=== PATIENT | female | born 1970 | race American Indian/Alaskan Native ===

== ENCOUNTER 2019-12-07 14:57 | Emergency (ER) | payer OTHER ==
--- NOTE | 2019-12-07 16:57 | Event Note ---
ED Screening Note ED Screening Note: 49 yo female with hx of uterine fibroids s/y myomectomy presents with LLQ pain for one week. This initial assessment/diagnostic orders/clinical plan/treatment(s) is/are subject to change based on patients health status, clinical progression and re- assessment by fellow clinical providers in the ED. Further treatment and workup at subsequent clinical providers discretion. Patient/guardian urged not to elope from the ED as their condition may be serious if not clinically assessed and managed. Initial orders include: labs
[2019-12-07 17:00] VITALS: BP 102/74
[2019-12-07 19:44] LABS: Basophils % (Auto) 0.7 % (0.0-1.8); Eosinophils # (Auto) 0.1 K/mm3 (0.0-0.4); Eosinophils % (Auto) 1.7 % (0.0-4.3); Hemoglobin 12.6 gm/dl (10.1-14.3); Lymphocytes # (Auto) 1.6 K/mm3 (1.2-5.4); Lymphocytes % (Auto) 37.1 % (13.4-35.0); Mean Corpuscular HGB Conc 33 % (30-34); Mean Corpuscular Volume 88 fl (79-97); Monocytes # (Auto) 0.3 K/mm3 (0.0-0.8); Monocytes % (Auto) 7.6 % (0.0-7.3); Platelet Count 332 K/mm3 (140-440); Red Blood Count 4.34 M/mm3 (3.65-5.03); Red Cell Distribution Width 13.8 % (13.2-15.2)
[2019-12-07 20:04] LABS: BUN/Creatinine Ratio 13; Blood Urea Nitrogen 8 mg/dL (7-17); Hemolysis Index 5
[2019-12-07 20:11] LABS: HCG Qualitative,Urine Negative (Negative)
[2019-12-07 20:14] LABS: Amorphous Crystals,Urine 2+; Mucus,Urine FEW /HPF
[2019-12-07 20:22] LABS: Color,Urine Straw (Yellow)
[2019-12-07 20:23] LABS: Bilirubin,Urine Negative (Negative); Blood,Urine Moderate (Negative); Urobilinogen,Urine < 2.0 mg/dL (<2.0)
--- NOTE | 2019-12-07 21:21 | Emergency Department Report ---
HPI - General Chief Complaint: Abdominal Pain Time Seen by Provider: 12/07/19 21:10 - HPI HPI: Room 44 The patient is a 49-year-old female present with a chief complaint of abdominal pain. The patient states for 1 week she has had pain in left lower quadrant has been intermittent. Patient denies nausea vomiting or diarrhea. Patient is unable to describe the quality of her pain. Patient denies new rash formation. Patient denies fever, dysuria or hematuria. The patient currently gives her pain score 5/10 Location: [See above] Duration: [See above] Quality: [See above] Severity: [See above] Timing: [See above] Context: [See above] Modifying factors: [See above] Associated signs and symptoms: [see above] Mode of transportation: The patient drove herself to the emergency department and there are no visitors present ED Past Medical Hx - Past Medical History Previous Medical History?: No - Surgical History Past Surgical History?: Yes Additional Surgical History: Myomectomy 2010 - Social History Smoking Status: Never Smoker Substance Use Type: None (Denies illicit drug use) - Medications Home Medications: Home Medications Medication Instructions Recorded Confirmed Last Taken Type Ibuprofen [Motrin 800 MG tab] 800 mg PO Q8HR PRN #20 tablet 12/07/19 Unknown Rx traMADoL [Ultram] 50 mg PO Q6HR PRN #20 tablet 12/07/19 Unknown Rx ED Review of Systems ROS: Stated complaint: STOMACH PAIN Other details as noted in HPI Constitutional: denies: fever Eyes: denies: eye pain ENT: denies: throat pain Respiratory: no symptoms reported Cardiovascular: denies: chest pain Endocrine: no symptoms reported Gastrointestinal: abdominal pain. denies: nausea, vomiting, diarrhea Genitourinary: denies: dysuria, hematuria Musculoskeletal: denies: back pain Neurological: denies: headache Physical Exam - Physical Exam Vital Signs: Vital Signs 12/07/19 16:56 Temperature 98.5 F Pulse Rate 83 Respiratory 20 Rate Blood Pressure 102/74 O2 Sat by Pulse 99 Oximetry Physical Exam: GENERAL: The patient is well-developed well-nourished female sitting in chair not appearing to be in acute distress. [] HEENT: Normocephalic. Atraumatic. Extraocular motions are intact. Patient has moist mucous membranes. NECK: Supple. Trachea midline CHEST/LUNGS: Clear to auscultation. There is no respiratory distress noted. HEART/CARDIOVASCULAR: Regular. There is no tachycardia. There is no gallop rub or murmur. ABDOMEN: Abdomen is soft, with the discomfort to palpation in the midepigastric, suprapubic and left lower quadrant. Patient has normal bowel sounds. There is no abdominal distention. SKIN: There is no rash. There is no edema. There is no diaphoresis. NEURO: The patient is awake, alert, and oriented. The patient is cooperative. The patient has normal speech and gait. MUSCULOSKELETAL: There is no evidence of acute injury. ED Course Vital Signs 12/07/19 16:56 Temperature 98.5 F Pulse Rate 83 Respiratory 20 Rate Blood Pressure 102/74 O2 Sat by Pulse 99 Oximetry ED Medical Decision Making - Lab Data Result diagrams: 12/07/19 18:49 12/07/19 18:49 Laboratory Tests 12/07/19 12/07/19 12/07/19 18:49 18:49 18:49 WBC 4.3 L RBC 4.34 Hgb 12.6 Hct 38.0 MCV 88 MCH 29 MCHC 33 RDW 13.8 Plt Count 332 Lymph % (Auto) 37.1 H [place] % (Auto) 7.6 H Eos % (Auto) 1.7 Baso % (Auto) 0.7 Lymph # 1.6 Bradford # 0.3 Eos # 0.1 Baso # 0.0 Seg Neutrophils % 52.9 Seg Neutrophils # 2.2 Sodium 138 Potassium 4.2 Chloride 104.7 Carbon Dioxide 22 Anion Gap 16 BUN 8 Creatinine 0.6 L Estimated GFR > 60 BUN/Creatinine Ratio 13 Glucose 89 Calcium 9.0 Lipase 33 Urine Color Urine Turbidity Urine pH Ur Specific [place] Urine Protein Urine Glucose (UA) Urine Ketones Urine Blood Urine Nitrite Ur Reducing Substances Urine Bilirubin Urine Ictotest Urine Urobilinogen Ur Leukocyte Esterase Urine WBC (Auto) Urine RBC (Auto) U Epithel Cells (Auto) Amorphous Crystals Urine Mucus Urine HCG, Qual 12/07/19 19:41 WBC RBC Hgb Hct MCV MCH MCHC RDW Plt Count Lymph % (Auto) [place] % (Auto) Eos % (Auto) Baso % (Auto) Lymph # Bradford # Eos # Baso # Seg Neutrophils % Seg Neutrophils # Sodium Potassium Chloride Carbon Dioxide Anion Gap BUN Creatinine Estimated GFR BUN/Creatinine Ratio Glucose Calcium Lipase Urine Color Straw Urine Turbidity Cloudy Urine pH 8.0 H Ur Specific [place] 1.005 Urine Protein 30 mg/dl Urine Glucose (UA) Negative Urine Ketones Negative Urine Blood Moderate A Urine Nitrite Negative Ur Reducing Substances Not Reportable Urine Bilirubin Negative Urine Ictotest Not Reportable Urine Urobilinogen < 2.0 Ur Leukocyte Esterase Negative Urine WBC (Auto) 1.0 Urine RBC (Auto) 91.0 U Epithel Cells (Auto) < 1.0 Amorphous Crystals 2+ Urine Mucus Few Urine HCG, Qual Negative - Radiology Data Radiology results: report reviewed (CT abdomen pelvis), image reviewed (CT abdomen pelvis) [facility] [address] [place] [address] Cat Scan Report Signed Patient: WENDIE JASSO MR#: [id number] : 1970 Acct:[id number] Age/Sex: 49 / F ADM Date: 12/07/19 Loc: ED Attending Dr: Ordering Physician: DEANNA MAGAÑA MD Date of Service: 12/07/19 Procedure(s): CT abdomen pelvis w con Accession Number(s): [id number] cc: DEANNA MAGAÑA MD CT abdomen pelvis w con INDICATION: Left lower quadrant abdominal pain. TECHNIQUE: All CT scans at this location are performed using the following dose modulation technique: Automated exposure control. Helical slices were obtained through the abdomen and pelvis. 100 cc of Omnipaque 300 is administered. COMPARISON: None available. FINDINGS: Abdomen: The lung bases are clear. The liver, spleen, pancreas, adrenal glands, and kidneys show no acute abnormality. There is no obstruction, inflammation, or free air. The aorta is normal in diameter. There is no adenopathy. Pelvis: There is a complex cystic mass in the pelvis which involves the left adnexa. Measures approximately 9.6 x 6.3 cm and is fluid and soft tissue density. Very small amount of free fluid in the dependent portion of the pelvis. No adenopathy is seen. On review of bone windows, no acute osseous abnormalities are seen. IMPRESSION: 1. There is a complex cystic mass in the left adnexa. The appearance is characteristic of cystic ovarian mass there is soft tissue component within this is concerning for an ovarian malignancy. Signer Name: Mikhail Espinoza MD Signed: 12/07/2019 11:08 PM Workstation Name: [id number] Transcribed By: SS Dictated By: Mikhail Espinoza MD Electronically Authenticated By: Mikhail Espinoza MD Signed Date/Time: 12/07/192307 DD/ 01 TD/TT: - Medical Decision Making CT findings discussed with patient. Importance of prompt follow-up was expressed to the patient given the concern for malignancy. Patient verbalized understanding - Differential Diagnosis Diverticulitis, UTI, pancreatitis, gastritis Critical care attestation.: If time is entered above; I have spent that time in minutes in the direct care of this critically ill patient, excluding procedure time. ED Disposition Clinical Impression: Acute abdominal pain, Ovarian mass, left Disposition: - TO HOME OR SELFCARE Is pt being admited?: No Does the pt Need Aspirin: No Condition: Stable Instructions: Abdominal Pain (ED) Additional Instructions: Return to the emergency department should you develop worsening symptoms, inability to tolerate food or liquids, high fever or any other concerns Prescriptions: Ibuprofen [Motrin 800 MG tab] 800 mg PO Q8HR PRN #20 tablet PRN Reason: Pain, Moderate (4-6) traMADoL [Ultram] 50 mg PO Q6HR PRN #20 tablet PRN Reason: Pain Referrals: PRIMARY CARE, [Primary Care Provider] - 3-5 Days MONICA SANTOS MD [Staff Physician] - [facility] (Dr. Santos is an FIN[employer]CIAL AID DIRECTOR. Please follow-up with her for further evaluation) Time of Disposition: 23:22
--- NOTE | 2019-12-07 23:12 | Cat Scan Report ---
CT abdomen pelvis w con INDICATION: Left lower quadrant abdominal pain. TECHNIQUE: All CT scans at this location are performed using the following dose modulation technique: Automated exposure control. Helical slices were obtained through the abdomen and pelvis. 100 cc of Omnipaque 30 0 is administered. COMPARISON: None available. FINDINGS: Abdomen: The lung bases are clear. The liver, spleen, pancreas, adrenal glands, and kidneys show no a cute abnormality. There is no obstruction, inflammation, or free air. The aorta is normal in diameter. There is no adenopathy. Pelvis: There is a complex cystic mass in the pelvis which involves the left adnexa. Measures approxi mately 9.6 x 6.3 cm and is fluid and soft tissue density. Very small amount of free fluid in the depe ndent portion of the pelvis. No adenopathy is seen. On review of bone windows, no acute osseous abnormalities are seen. IMPRESSION: 1. There is a complex cystic mass in the left adnexa. The appearance is characteristic of cystic ovar xin mass there is soft tissue component within this is concerning for an ovarian malignancy. Signer Name: Mikhail Espinoza MD Signed: 12/07/2019 11:08 PM Workstation Name: [id number]
== END 2019-12-07 23:42 | disposition home or self-care (01) ==
LOC: ED 14:57
DX: N83.8 Other noninflammatory disorders of ovary, fallopian tube and broad ligament (principal); R10.32 Left lower quadrant pain
CPT/HCPCS: 36415; 74177; 80048; 81001; 81025; 83690; 85025; 99284; Q9967